=== PATIENT | male | born 1970 | race African-American/Black ===

== ENCOUNTER 2019-09-22 15:52 | Emergency (ER) | payer OTHER ==
[~2019-09-22] VITALS: Ht 180.3 cm; Wt 83.8 kg
[2019-09-22 15:52] VITALS: BP 129/80
[2019-09-22] MEDS ORDERED: MOTRIN (16:01)
[2019-09-22 17:03] LABS: BASO % 0.7 % (0.0-1.0); EOS # 0.3 10^3/uL (0.0-0.5); EOS % 4.4 % (0.0-3.0); HEMATOCRIT 40.8 % (42.0-52.0); HEMOGLOBIN 13.7 g/dl (13.5-17.5); LYMPH % 32.1 % (24.0-44.0); MEAN CORPUSCULAR HEMOGLOBIN 31.6 pg (27.0-33.0); MEAN CORPUSCULAR HGB CONC 33.6 g/dl (32.0-36.5); MEAN CORPUSCULAR VOLUME 94.2 fl (80.0-96.0); MONO # 0.4 10^3/uL (0.0-0.8); MONO % 6.8 % (0.0-5.0); NEUTROPHILS # 3.4 10^3/uL (1.5-8.5); NEUTROPHILS % 55.8 % (36.0-66.0); PLATELET COUNT, AUTOMATED 205 10^3/uL (150-450); RED BLOOD COUNT 4.33 10^6/uL (4.30-6.10); WHITE BLOOD COUNT 6.1 10^3/uL (4.0-10.0)
[2019-09-22 17:36] LABS: BLOOD UREA NITROGEN 12 MG/DL (7-18); CALCIUM LEVEL 8.6 MG/DL (8.5-10.1); CARBON DIOXIDE LEVEL 27 MEQ/L (21-32); CHLORIDE LEVEL 105 MEQ/L (98-107); CREATININE FOR GFR 1.01 MG/DL (0.70-1.30); GLOMERULAR FILTRATION RATE > 60.0 (>60); GLUCOSE, FASTING 136 MG/DL (70-100); POTASSIUM SERUM 3.8 MEQ/L (3.5-5.1); SODIUM LEVEL 136 MEQ/L (136-145)
[2019-09-22 17:45] LABS: INFLUENZA A AMPLIFICATION NEGATIVE (NEGATIVE); INFLUENZA B AMPLIFICATION NEGATIVE (NEGATIVE)
[2019-09-22] MEDS ORDERED: NS 1,000 ML IV ONE (17:45)
[2019-09-22] MEDS ORDERED: ONDANSETRON 4MG/2ML VIAL IV ONE (17:45)
[2019-09-22] MEDS ORDERED: MORPHINE 4 MG/ML 1ML VIAL/SYRINGE (J2270) IV ONE ×2 (17:45→20:45)
[2019-09-22] MEDS ORDERED: IPRATROPIUM 0.5MG/ALBUTEROL 2.5MG INH SOL UD 3ML (DUONEB)(J7620) NEB ONE ×2 (17:45→23:15)
[2019-09-22] MEDS ORDERED: ISOVUE-370 76% 100ML VIAL As Ordered ONE (17:54)
[2019-09-22 17:58] LABS: CK-MB VALUE MASS 1.8 NG/ML (<3.6); CPK CREATINE PHOSPHOKINASE 230 U/L (39-308); MB/CK RELATIVE INDEX 0.78 (< OR =4); TROPONIN I < 0.02 NG/ML (< 0.10)
--- NOTE | 2019-09-22 18:24 | REPVR ---
PROCEDURE INFORMATION: Exam: CT Angiography Chest With Contrast Exam date and time: 09/22/2019 5:59 PM Age: 49 years old Clinical indication: Other: Hemoptysis; Additional info: Hemoptysis, chest pain TECHNIQUE: Imaging protocol: Computed tomographic angiography of the chest with intravenous contrast. 3D rendering: MIP and/or 3D reconstructed images were created by the technologist. Radiation optimization: All CT scans at this facility use at least one of these dose optimization techniques: automated exposure control; mA and/or kV adjustment per patient size (includes targeted exams where dose is matched to clinical indication); or iterative reconstruction. Contrast material: ISOVUE 370; Contrast volume: 75 ml; Contrast route: IV; COMPARISON: CR Chest, 2 view PA, Lat 09/22/2019 5:00 PM FINDINGS: Pulmonary arteries: There are no pulmonary emboli. Aorta: There is no aortic dissection or aneurysm. Lungs: Focal right apical mass and or tumefactive fibrosis measuring 2.4 x 2.1 x 3.1 cm. Close interval follow-up suggested and/or correlation with PET imaging may be indicated. Mixed ground-glass and solid opacity in the posterior aspect of the right upper lobe. Findings consistent with acute pneumonitis including viral etiologies (COVID 19 stage 2-3 not excluded in the appropriate clinical setting). Multiple small subpleural blebs demonstrated in the upper lung zones. Pleural space: Unremarkable. No pneumothorax. No pleural effusion. Heart: Unremarkable. No cardiomegaly. No pericardial effusion. Liver: Cyst left lobe of the liver adjacent to the falciform ligament measures 2.1 cm maximally. Lymph nodes: Right hilar lymphadenopathy. Adenopathy surrounds and narrows the apical segmental artery to the right upper lobe. Mediastinal lymphadenopathy measures up to 16 mm in the retrocaval pretracheal region, 13 mm in the AP window, 14 mm in the subcarinal region. Bones/joints: Unremarkable. No acute fracture. Soft tissues: Unremarkable. IMPRESSION: 1. Focal right apical mass and or tumefactive fibrosis measuring 2.4 x 2.1 x 3.1 cm. Close interval follow-up suggested and/or correlation with PET imaging may be indicated. 2. Mixed ground-glass and solid opacity in the posterior aspect of the right upper lobe. Findings consistent with acute pneumonitis including viral etiologies (COVID 19 stage 2-3 not excluded in the appropriate clinical setting). 3. There is no aortic dissection or aneurysm. 4. Right hilar lymphadenopathy. Adenopathy surrounds and narrows the apical segmental artery to the right upper lobe. 5. There are no pulmonary emboli. Electronically signed by: Stu Munson On 09/22/2019 18:24:14 PM
--- NOTE | 2019-09-22 18:44 | REP ---
CHEST, TWO VIEWS: Two views of the chest are performed. There appears to be peripheral right upper lobe infiltrate. There is a very small right effusion. Apical soft tissue density on the right appears to demonstrate central air lucency. possibly a cavitating lesion. Diameter is about 4 cm. Prominent right paratracheal soft tissues is seen and I suspect adenopathy. The heart is normal in size. Left lung is clear. IMPRESSION: There appears to be right upper lobe infiltrate. There also appears to be right apical lesion approximately 4 cm in diameter, possibly cavitating. I suspect right paratracheal adenopathy. There appears to be a very small right pleural effusion. Electronically Signed by Aureliano Mccormick MD 09/23/2019 05:04 P
--- NOTE | 2019-09-22 21:24 | ECGEPIP ---
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
[2019-09-22] MEDS ORDERED: LIDOCAINE 4% CREAM 5GM (LMX4) TOP ONE (22:30)
[2019-09-22] MEDS ORDERED: NORCO 5/325MG TABLET (BULK FOR ED) PO ONE ×2 (22:30)
[2019-09-22] MEDS ORDERED: ALBUTEROL 90 MCG/ACT 8GM HFA INHALER INH ONE (22:30)
[2019-09-22] MEDS ORDERED: PROAAER10 INH (22:42)
[2019-09-22] MEDS ORDERED: NORCO, ANEXSIA 5/325MG TABLET (HYDROcodone/ACETAMINOPHEN) PO ONE (22:45)
--- NOTE | 2019-09-23 14:44 | ED PDOC ---
Post-Departure Follow-Up dr hays faxed formal report of cta chest for fu Wilton Cobb MD Sep 23, 2019 14:44
--- NOTE | 2019-09-27 13:19 | ED PDOC ---
Post-Departure Follow-Up dr hays faxed formal report of cxr for fu Wilton Cobb MD Sep 27, 2019 13:19
[2019-11-04] MEDS ORDERED: PROC10TA4 PO (15:30)
[2019-11-04] MEDS ORDERED: ONDA8TAB10 PO (15:30)
[2019-11-10] MEDS ORDERED: MULTCAP PO (10:43)
[2019-11-10] MEDS ORDERED: MELATONIN PO (13:52)
[2019-11-10] MEDS ORDERED: CANNABIDIOL PO (13:52)
== END 2019-09-23 00:59 | disposition home or self-care (01) ==
LOC: M ED 15:52
DX: J18.9 Pneumonia, unspecified organism (principal); R91.8 Other nonspecific abnormal finding of lung field; R00.1 Bradycardia, unspecified; R35.8 Other polyuria; F17.200 Nicotine dependence, unspecified, uncomplicated
CPT/HCPCS: 71046; 71275; 80048; 82550; 82553; 85025; 87486; 87502; 87581; 87633; 87798; 93005; 94640; 96361; 96374; 96375; 96376; 99284; J2270; J2405; Q9967

== ENCOUNTER → 2019-09-28 | Outpatient (CLI) | payer OTHER ==
[~2019-09-28] MED LIST: MOTRIN; PROAAER10 INH
[2019-09-28 14:39] LABS: CHOLESTEROL RISK RATIO 7.521 (<5)
== END ==
LOC: M PLALAB 10:52
PROVIDERS: ATTEND Internal Medicine Pulmonary Disease
DX: Z00.00 Encounter for general adult medical examination without abnormal findings (principal); R91.1 Solitary pulmonary nodule

== ENCOUNTER → 2019-09-30 | Outpatient (REF) | payer OTHER ==
[~2019-09-30] MED LIST changes: +CANNABIDIOL PO; +MELATONIN PO; +MULTCAP PO; +ONDA8TAB10 PO; +ONDA8TAB8 PO; +PROC10TA4 PO
== END ==
LOC: M LAB REF 16:31
PROVIDERS: ATTEND Internal Medicine Pulmonary Disease
DX: R04.2 Hemoptysis (principal)

== ENCOUNTER → 2019-10-04 | Outpatient (CLI) | payer OTHER ==
[~2019-10-04] MED LIST changes: -CANNABIDIOL PO; -MELATONIN PO; -MULTCAP PO; -ONDA8TAB10 PO; -ONDA8TAB8 PO; -PROC10TA4 PO
--- NOTE | 2019-10-04 15:09 | REP ---
PET/CT: HISTORY: Solitary pulmonary nodule. Abnormal CT study of the chest. COMPARISONS: Comparison chest CT study is from September 22, 2019. TECHNIQUE: 45 minutes following the intravenous injection of a 8.08 mCi dose of F-18 FDG, three-dimensional PET scintigraphy is acquired from the skull base to the proximal thighs. Triplanar noncontrast CT scanning is acquired through the same anatomic range for attenuation correction, and image registration with scan parameters optimized to minimize radiation exposure to the patient. PET scintigraphy and CT datasets were fused and displayed on a workstation with multiplanar and projection display capability. PET/CT FINDINGS: There is bilateral symmetric mildly increased salivary gland uptake affecting both parotid glands and both submandibular glands with maximum standard uptake value ranging from 4.5-7.0. Question mild sialoadenitis versus normal variant. No salivary gland mass lesion is appreciated. There is hypermetabolic lymphadenopathy in the right subclavicular region at the base of the neck in a 2.3 cm lymph node. Maximum standard uptake value here is 10.8. There is also right subclavian charlene uptake in a subcentimeter lymph node, maximum SUV 12.16. The right apical lung mass seen on CT study of the chest is hypermetabolic with maximum standard uptake value 22.86. There is right superior mediastinal, right pretracheal, and precarinal adenopathy with maximum standard uptake value ranging up to 14.9. Right hilar hypermetabolic adenopathy is seen, maximum SUV value 16.81. Right subcarinal hypermetabolic adenopathy is seen, 7.50. There is mildly hypermetabolic uptake in the parenchymal infiltrate in the right upper lobe, maximum SUV value 2.88. The infiltrate is more pronounced than on the comparison CT study. In the abdomen and pelvis, there is normal distribution of tracer. No abnormal adrenal uptake is seen. No abnormal hypermetabolic uptake is seen in the abdomen and pelvis. No abnormal bony focus is seen. IMPRESSION: Findings consistent with locally advanced bronchogenic malignancy in the right lung apex with mediastinal and right hilar lymphadenopathy and right supraclavicular and subclavicular hypermetabolic adenopathy. There is mildly increased uptake in a right upper lobe infiltrate which could be a postobstructive or neoplastic. Electronically Signed by Dre Loja MD 10/04/2019 04:29 P
== END ==
LOC: M PLARAD 08:29
PROVIDERS: ATTEND Internal Medicine Pulmonary Disease
DX: R91.1 Solitary pulmonary nodule (principal)
CPT/HCPCS: 78815; A9552

== ENCOUNTER → 2019-10-11 | Outpatient (REF) | payer OTHER ==
[~2019-10-11] MED LIST changes: +CANNABIDIOL PO; +MELATONIN PO; +MULTCAP PO; +ONDA8TAB10 PO; +ONDA8TAB8 PO; +PROC10TA4 PO
[2019-10-11 17:28] LABS: PLATELET COUNT, AUTOMATED 310 10^3/uL (150-450)
[2019-10-11 17:38] LABS: INR 0.97; PROTHROMBIN TIME 12.6 SECONDS (11.8-14.0)
[2019-10-11 17:39] LABS: PARTIAL THROMBOPLASTIN TIME 36.1 SECONDS (25.0-38.4)
== END ==
LOC: M LAB REF 16:53
PROVIDERS: ATTEND Internal Medicine Pulmonary Disease
DX: R91.8 Other nonspecific abnormal finding of lung field (principal)

== ENCOUNTER → 2019-11-07 | Outpatient (CLI) | payer OTHER ==
[~2019-11-07] MED LIST changes: -CANNABIDIOL PO; -MELATONIN PO; -MULTCAP PO; -ONDA8TAB8 PO; +PROHANCE 279.3MG/ML 15ML VIAL (A9576) As Ordered ONE; +PROHANCE 279.3MG/ML 5ML VIAL (A9576) As Ordered ONE
--- NOTE | 2019-11-07 12:00 | REP ---
MRI THORACIC SPINE WITH AND WITHOUT CONTRAST: TECHNIQUE: Multiple sequences obtained in the sagittal and axial planes prior to and following the intravenous administration of 16 mm ProHance. Thoracic vertebral bodies are normal in height and well aligned with normal thoracic kyphosis. No compress fracture is seen. There is no evidence of metastatic lesion. There is scattered loss of water signal and disc degeneration at virtually all levels. Small disc bulge is seen centrally at the T1-2 disc space. There is no abnormal cord signal or cord enhancement. There is no cord compression. Right paraspinal soft tissue mass at the apex of the right lung is noted. This appears to encase the exiting right T1 and T2 nerve roots just lateral to the neural foramen at these levels. Incidental note is made of previously identified right hilar lymphadenopathy. There is also an enlarged lymph node in the inferior right neck soft tissues measuring 2.2 x 1.3 cm. IMPRESSION: No evidence of thoracic vertebral body metastatic lesion. Small disc bulge T1-2 disc level. No cord lesion or cord compression. Enhancing mass in the apex of the right lung in a paraspinal location appears to encase the exiting T1 and T2 nerve roots just lateral to the neural foramen at these levels. Electronically Signed by Aureliano Mccormick MD 11/07/2019 12:12 P
--- NOTE | 2019-11-07 12:04 | REP ---
MRI BRAIN WITH AND WITHOUT CONTRAST: TECHNIQUE: Multiple sequences obtained in the sagittal and axial planes prior to and following the administration of 16 mL ProHance. Ventricles are normal in size and position. There is no midline shift or mass effect. Mccormick-white differentiation is well maintained. There is no abnormal signal of the brain, brain stem or cerebellum. 7th and 8th cranial nerve complexes are unremarkable. No enhancing metastatic lesion is seen. There is no extra-axial fluid collection. Globes are intact. There is no abnormal signal in the paranasal sinuses or mastoid air cells. IMPRESSION: No evidence of intracranial metastatic disease. Electronically Signed by Aureliano Mccormick MD 11/07/2019 12:12 P
== END ==
LOC: M RAD 08:29
PROVIDERS: ATTEND Internal Medicine Medical Oncology
DX: C34.90 Malignant neoplasm of unspecified part of unspecified bronchus or lung (principal)
CPT/HCPCS: 70553; 72157; A9576

== ENCOUNTER → 2019-11-10 | Outpatient (CLI) | payer OTHER ==
[~2019-11-10] MED LIST changes: +ACETAMINOPHEN 325 MG TAB As Ordered ONE; +CANNABIDIOL PO; +LIDOCAINE 1% MDV 20ML VIAL As Ordered ONE; +MELATONIN PO; +MIDAZOLAM INJ 2MG/2ML VIAL (J2250 PER 1MG) As Ordered ONE; +MULTCAP PO; -PROHANCE 279.3MG/ML 15ML VIAL (A9576) As Ordered ONE; -PROHANCE 279.3MG/ML 5ML VIAL (A9576) As Ordered ONE; +ceFAZolin 1GM VIAL (J0690 PER 500MG) As Ordered ONE; +diphenhydrAMINE 50MG/ML VIAL (J1200) As Ordered ONE; +fentaNYL 100 MCG/2 ML INJECTION (J3010) As Ordered ONE
--- NOTE | 2019-11-10 13:42 | RADONC ---
RADIATION ONCOLOGY CONSULTATION NOTE DATE OF CONSULTATION: 11/10/2019 This is a telemedicine visit. The patient was informed of the risks including security breech, technological failure, inability to perform a comprehensive physical exam which could delay or prevent an accurate diagnosis, and potential complications from treatment decisions rendered over a telemedicine platform. The patient understands and consented to the use of telehealth services. Phone only. CHART NUMBER: [id number]. DIAGNOSIS: Right upper lobe lung cancer. ECOG PERFORMANCE STATUS: Subjectively 0. STAGE: IIIB, T2a, N3, M0. CONSULTATION NOTE: Mr. 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 HISTORY OF PRESENT ILLNESS: The patient was in his usual state of health but reported developing some hemoptysis in earlier July or so. By September, he had developed increasing hemoptysis and some upper right-sided chest and back pain. The patient presented on 09/22/2019 with these complaints, and a CT angio of the chest was undertaken which revealed a focal right apical mass measuring 2.4 cm x 2.1 cm x 3.1 cm. There was also a mixture ground-glass and solid opacity in the posterior aspect of the right upper lobe. There was right hilar adenopathy noted. The patient was seen by Dr. Jorge, and a PET scan was done on 10/04/2019. This revealed hypermetabolic uptake in the right subclavicular region at the base of the neck and a 2.3 cm lymph node. There was an SUV value of 10.8 in that lymph node. There was also right subclavian charlene uptake in a subcentimeter-size lymph node with an SUV value of 12.16. The right apical lung mass seen on CT scan of the chest was hypermetabolic with an SUV value of 22.86. There was right superior mediastinal, right pretracheal, and precarinal lymphadenopathy present. The maximum SUV value is 14.9. There was right hilar hypermetabolic uptake, as well, with an SUV value of 16.8. The right subcarinal hypermetabolic adenopathy had an SUV value of 7.5. The infiltrate which was thought to be nonmalignant had an SUV value of 2.8. On 10/20/2019, the patient underwent right upper lung biopsy, and pathology revealed a moderately differentiated invasive squamous cell carcinoma. The tumor was CK5/6 positive and TTF-1 negative. Pulmonary function tests were done on 10/13/2019, and an FEV-1 was found to be 2.81 or 79% of predicted. The diffusion capacity was 26.51 or 84% of predicted. The patient has been seen by medical oncology and is now presenting to us for discussion of external beam radiation therapy as a combined modality approach. PAST MEDICAL HISTORY: The patient's past medical history is largely noncontributory. He had a herniorrhaphy in 1977 at the age of 6. He has been in otherwise good health. SOCIAL HISTORY: The patient has a long history of smoking for about 28 years. He quit less than a year ago. He drinks alcohol occasionally. FAMILY HISTORY: The patient's family history is positive for a father with colon cancer and a brother with colon cancer. There is no family history of lung cancer. REVIEW OF SYSTEMS: The patient's review of systems is positive for his right arm pain and upper back pain, as well as hemoptysis, but is otherwise noncontributory. He denies nausea, vomiting, fevers, chills, night sweats, diplopia, headaches, anxiety or depression, anorexia, weight loss, visual disturbances, chest pain, urinary or bowel difficulties, bone pain, or neurological problems. PHYSICAL EXAMINATION: Physical examination was deferred at this time as per COVID-19 precautions. This was a telephone interview. ASSESSMENT: Clearly, the patient appears to be a candidate for external beam radiation therapy, and I have so informed him. I have discussed with the patient in detail the potential benefits, as well as possible acute and chronic sequelae of external beam radiation therapy. We have discussed logistics of treatment planning, simulation, and subsequent fractionated daily radiation treatments. I am scheduling the patient for the next available simulation slot, and radiation treatments will begin subsequently. We will coordinate his care with Dr. Morales, his medical oncologist, for concomitant therapy. Thank you for allowing us to participate in the care of this very pleasant gentleman. If I can be of any further assistance or provide you with any information, please free to contact me at any time. As always, warm regards. Tyler Maxwell cc: MD Gideon Ortega MD
--- NOTE | 2019-11-10 13:47 | IRHP ---
[facility] IR Pre-Procedure H & P General Date of Service: Nov 10, 2019 Procedure: Same Day Surgery Interval History and Physical I have seen the patient and reviewed last H & P performed within 30 days. There is no significant interval change. History of Present Illness Chief Complaint The patient is a 49-year-old male admitted with a reason for visit of Lung Ca. PRE-PROCEDURE DIAGNOSIS: lung ca HEART: normal rate. LUNGS: normal breathing at rest. ASA Classification ASA Classification: III-Severe systemic dis. Mallampati Score: II NPO: Yes Problems with prior sedation: No Obstructive Sleep Apnea: No Plan moderate sedation Allergies Coded Allergies: No Known Allergies (Unverified , 09/22/19) Home Medications Scheduled Multivitamin (Multivitamins), 1 CAP PO DAILY, (Reported) Scheduled PRN Albuterol Sulfate (Proair Hfa), 2 PUFF INH Q4-6HP PRN for wheezing Ondansetron HCl (Ondansetron HCl), 8 MG PO Q6H PRN for NAUSEA OR VOMITING Prochlorperazine Maleate (Prochlorperazine Maleate), 10 MG PO Q8HP PRN for NAUSEA OR VOMITING Discontinued Medications [motrin 800], (Reported) Discontinued Reason: Pt states not taking VS, I&O, 24H, Fishbone Vital Signs/I&O Vital Signs Date Time Temp Pulse Resp B/P (MAP) Pulse Ox O2 Delivery O2 Flow Rate FiO2 11/10/19 13:30 98.2 75 16 99 Room Air EDUARDO WASSERMAN MD Nov 10, 2019 13:47
--- NOTE | 2019-11-10 14:44 | REP ---
IR Ultrasound and fluoroscopy-guided port placement. IR Ultrasound of the neck. IR Moderate sedation. Clinical information: Lung cancer. Physician: Dr. Cardenas. Procedure: The patient was advised of the benefits, risks, and alternatives of the procedure and informed consent was obtained. A time-out was performed with verification of the patient's name, MRN, site of procedure and type of procedure to be performed. The patient was positioned in the supine position on the angiographic table. The site was prepped and draped in the usual sterile fashion. Moderate sedation was performed by the physician including the presence of an independent trained observer who assisted and monitored the patient's level of consciousness and physiologic status. Following the administration of Fentanyl and Versed, the physician spent 45 minutes of continuous face to face time with the patient. Ultrasound of the neck reveals a patent and compressible right internal jugular vein. A family preservation officer radiograph reveals right hilar fullness. The neck and anterior chest wall were anesthetized with lidocaine. The right internal jugular vein was accessed using a microintroducer needle under ultrasound guidance, via a lateral approach. An 018 wire was advanced into the superior vena cava, the needle was removed and a microsheath was placed. An Amplatz wire was then passed into the inferior vena cava. An incision at the internal jugular vein access site and anterior chest wall were made using a scalpel. An incision was made at the anterior chest wall. A small pocket was created using a combination of blunt and sharp dissection. A tunneling device was then used to pass the catheter from the pocket to the neck puncture site. An 8-[employer] smart power port was then positioned in the pocket. The catheter was then measured and cut. The introducer sheath was exchanged for a peel-away sheath. The catheter was passed through the peel-away sheath into the internal jugular vein and the peel-away sheath was removed. The port tip was positioned at the cavo atrial junction. The port was then accessed with a Espino needle. The port flushes and aspirates well. The puncture site in the neck was closed. The chest wall incision was then closed with 2-0 Vicryl and 4-0 Monocryl. Glue and Steri-Strips were applied. A sterile dressing was then applied. The patient tolerated the procedure well and was returned to the PRU in stable condition. Estimated blood loss: <5 ml. Complications: None. Conclusion: 1. Successful placement of an 8-[employer] smart power port via the right internal jugular vein. The port is ready for immediate use. 2. Patient to follow up in IR clinic in 2 weeks. Thank you for this referral. Electronically Signed by Sandra Cardenas MD 11/10/2019 02:43 P
[2019-11-10] MEDS: ACETAMINOPHEN 325 MG TAB PO ONE (15:25)
[2019-11-10 16:45] VITALS: BP 131/98
== END ==
LOC: M IRPRO 12:43
PROVIDERS: ATTEND Radiology Diagnostic Radiology
DX: C34.11 Malignant neoplasm of upper lobe, right bronchus or lung (principal); Z80.0 Family history of malignant neoplasm of digestive organs; Z72.0 Tobacco use

== ENCOUNTER → 2019-11-10 | Outpatient (CLI) | payer OTHER ==
[~2019-11-10] MED LIST changes: -ACETAMINOPHEN 325 MG TAB As Ordered ONE; -LIDOCAINE 1% MDV 20ML VIAL As Ordered ONE; -MIDAZOLAM INJ 2MG/2ML VIAL (J2250 PER 1MG) As Ordered ONE; -ceFAZolin 1GM VIAL (J0690 PER 500MG) As Ordered ONE; -diphenhydrAMINE 50MG/ML VIAL (J1200) As Ordered ONE; -fentaNYL 100 MCG/2 ML INJECTION (J3010) As Ordered ONE
== END ==
LOC: M ONCR 10:01
PROVIDERS: ATTEND Radiology Radiation Oncology
DX: C34.11 Malignant neoplasm of upper lobe, right bronchus or lung (principal)

== ENCOUNTER 2019-11-14 10:31 | Outpatient (RCR) | payer OTHER ==
[2019-11-14] MEDS ORDERED: ONDA8TAB8 PO (11:24)
--- NOTE | 2019-11-15 00:10 | RADONC ---
RADIATION ONCOLOGY SIMULATION NOTE DATE: 11/14/2019 CHART NUMBER: [id number] Mr. Peters was taken to the CT scan for CT simulation of his lung field. CT was accomplished without difficulty or discomfort. Radiation treatment planning is underway and radiation treatments will begin subsequently. An immobilization device was created and will be used throughout the course of treatment. It was created without difficulty or discomfort. I was physically present throughout the course of CT simulation.
== END 2019-11-17 ==
LOC: M ONCR 10:31
PROVIDERS: ATTEND Radiology Radiation Oncology
DX: C34.11 Malignant neoplasm of upper lobe, right bronchus or lung (principal)

== ENCOUNTER → 2019-11-29 | Outpatient (POV) | payer OTHER ==
[~2019-11-29] MED LIST changes: +AMIL5TAB4 PO; +GABA-1171 PO; +ONDA8TAB8 PO; +OXYC-517 PO
--- NOTE | 2019-11-30 10:06 | IRPN ---
[facility] IR Progress Note IR Progress Note DATE: November 29, 2019 FOLLOW-UP: Status post port placement, patient doing well. Denies pain, fevers or chills. Port used without issues. ON EXAMINATION: Pictures sent by patient were reviewed. Port site appears to be healing well. No discoloration or discharge. IMPRESSION: Doing well status post port placement. No further follow up scheduled unless initiated by patient and or referring provider. Thank you for this referral Allergies Coded Allergies: No Known Allergies (Unverified , 09/22/19) EDUARDO WASSERMAN MD November 30, 2019 10:06
== END ==
LOC: M IRPOV 09:51
PROVIDERS: ATTEND Radiology Diagnostic Radiology
DX: Z45.2 Encounter for adjustment and management of vascular access device (principal)

== ENCOUNTER 2019-12-16 07:57 | Outpatient (RCR) | payer OTHER ==
--- NOTE | 2019-11-30 06:36 | RADONC ---
RADIATION ONCOLOGY PROGRESS NOTE DATE: 11/28/2019 CHART #: [id number] Mr. Robledo is presently at a dose of 600 cGy to his right lung and is tolerating treatments quite well at this point with no complaints related to his radiation therapy. He is having no chest pain or increased difficulty breathing. REVIEW OF SYSTEMS: The patient's review of systems is noncontributory. Denies nausea, vomiting, fevers, chills, night sweats, diplopia, headaches, anxiety or depression, anorexia, weight loss, visual disturbances, chest pain, urinary or bowel difficulties, bone pain, or neurological problems. PHYSICAL EXAMINATION: The patient's skin is in good condition with no evidence of radiation change present. There is no moist or dry desquamation. The remainder of his physical exam remains unchanged. Mr. Peters is tolerating treatments quite well and radiation will continue as scheduled.
--- NOTE | 2019-12-07 07:09 | RADONC ---
RADIATION ONCOLOGY PROGRESS NOTE: DATE: 12/05/2019 CHART NUMBER: [id number] Mr. Peters is presently at a dose of 1600 cGy to his right lung and is tolerating treatments quite well at this point with no complaints related to his radiation therapy. He is having no significant difficulty breathing or swallowing. REVIEW OF SYSTEMS: The patient's review of systems is positive for some mild nausea since chemotherapy but is otherwise noncontributory. Denies vomiting, fevers, chills, night sweats, diplopia, headaches, anxiety or depression, anorexia, weight loss, visual disturbances, chest pain, urinary or bowel difficulties, bone pain, or neurological problems. PHYSICAL EXAMINATION: The patient's skin is in good condition with no evidence of radiation change present. There is no moist or dry desquamation. The remainder of his physical exam remains unchanged. Mr. Peters is tolerating treatments quite well, and radiation will continue as scheduled.
[~2019-12-16 07:57] MED LIST changes: +MAGICMW SSP
--- NOTE | 2019-12-16 13:53 | RADONC ---
RADIATION ONCOLOGY PROGRESS NOTE DATE: 12/13/2019 CHART NUMBER: [id number] PROGRESS NOTE: Mr. Peters is presently at a dose of 2600 cGy to his right lung and is tolerating treatment quite well at this point with no complaints related to his radiation therapy. He is having no increased difficulty breathing. He is having some soreness of the throat but this has not stopped him from eating. REVIEW OF SYSTEMS: The patient's review of systems is positive for some mild esophagitis, but is otherwise noncontributory. Denies nausea, vomiting, fevers, chills, night sweats, diplopia, headaches, anxiety or depression, anorexia, weight loss, visual disturbances, chest pain, urinary or bowel difficulties, bone pain, or neurological problems. PHYSICAL EXAMINATION: The patient's skin is in good condition with no evidence of moist or dry desquamation. The remainder of his physical exam remains unchanged. Mr. Peters is tolerating treatment quite well and radiation will continue as scheduled.
[2019-12-28] MEDS ORDERED: CHLOR25TA PO (15:36)
[2020-01-02] MEDS ORDERED: SILV40CR EXT (08:33)
== END 2019-12-18 ==
LOC: M ONCR 07:57
PROVIDERS: ATTEND Radiology Radiation Oncology
DX: C34.11 Malignant neoplasm of upper lobe, right bronchus or lung (principal)

== ENCOUNTER 2020-01-05 07:56 | Outpatient (RCR) | payer OTHER ==
--- NOTE | 2019-12-24 15:14 | RADONC ---
RADIATION ONCOLOGY PROGRESS NOTE: DATE: 12/19/2019 CHART NUMBER: [id number] Mr. Peters is presently at a dose of 3400 cGy to his right lung and is tolerating treatments quite well at this point with no complaints related to his radiation therapy. His triple mix has alleviated his esophagitis quite well. REVIEW OF SYSTEMS: The patient's review of systems is noncontributory. He denies nausea, vomiting, fevers, chills, night sweats, diplopia, headaches, anxiety or depression, anorexia, weight loss, visual disturbances, chest pain, urinary or bowel difficulties, bone pain, or neurological problems. PHYSICAL EXAMINATION: The patient's skin is in good condition with no evidence of moist or dry desquamation. The remainder of his physical exam remains unchanged. Mr. Peters is tolerating treatments quite well and radiation will continue as scheduled.
--- NOTE | 2019-12-30 10:50 | RADONC ---
RADIATION ONCOLOGY PROGRESS NOTE DATE: 12/26/2019 CHART #: [id number] Mr. Peters is presently at a dose of 4400 cGy to his right lung and is tolerating treatments quite well at this point with no significant difficulties related to his radiation therapy other than for some esophagitis. REVIEW OF SYSTEMS: The patient's review of systems is positive for some discomfort upon swallowing, but is otherwise noncontributory. Denies nausea, vomiting, fevers, chills, night sweats, diplopia, headaches, anxiety or depression, anorexia, weight loss, visual disturbances, chest pain, urinary or bowel difficulties, bone pain, or neurological problems. PHYSICAL EXAMINATION: The patient's skin is in good condition with no evidence of moist or dry desquamation. The remainder of the physical exam remains unchanged. Mr. Peters is tolerating treatments quite well and radiation will continue as scheduled.
--- NOTE | 2020-01-04 09:29 | RADONC ---
RADIATION ONCOLOGY PROGRESS NOTE DATE: 01/02/2020 CHART #: [id number] Mr. Peters is presently at a dose of 5400 cGy to his right lung and is tolerating treatments quite well at this point with no significant complaints related to his radiation therapy. He is actually doing quite well. He does have some tenderness of the skin both on the anterior and posterior areas. REVIEW OF SYSTEMS: The patient's review of systems is positive for some skin tenderness but is otherwise noncontributory. Denies nausea, vomiting, fevers, chills, night sweats, diplopia, headaches, anxiety or depression, anorexia, weight loss, visual disturbances, chest pain, urinary or bowel difficulties, bone pain, or neurological problems. PHYSICAL EXAMINATION: The patient's skin shows some dry desquamation present over the anterior surface and the posterior also shows some desquamation and tanning present. The remainder of his physical exam remains unchanged except for a 2 pound weight loss. ASSESSMENT: The patient is clinically doing well at this time and radiation will continue as scheduled.
[~2020-01-05 07:56] MED LIST changes: +CHLOR25TA PO; +SILV40CR EXT
--- NOTE | 2020-01-08 14:49 | RADONC ---
RADIATION ONCOLOGY TREATMENT SUMMARY DATE: 01/05/2020 CHART #: [id number] DIAGNOSIS: Right upper lobe lung cancer. STAGE: III B, [id number]. ECOG PERFORMANCE STATUS: 0. TREATMENT SUMMARY: Mr. 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 We treated the patient to his primary site for a total dose of 6000 cGy delivered in 30 fractions of 200 cGy each over 41 elapsed days from 11/24/2019 through 01/05/2020. The patient's primary site was treated on a linear accelerator utilizing 3-D conformal technique with a 15 MV photon beam. Mr. Peters tolerated his treatments quite well and was able complete therapy as prescribed without interruption. I have scheduled the patient to see me again in 1 month for further followup. He will also continue to be followed by his other physicians as well. cc: MD Gideon Ortega MD
== END 2020-01-17 ==
LOC: M ONCR 07:56
PROVIDERS: ATTEND Radiology Radiation Oncology
DX: C34.11 Malignant neoplasm of upper lobe, right bronchus or lung (principal)

== ENCOUNTER → 2020-02-08 | Outpatient (CLI) | payer OTHER | LOC: M ONCR 08:58 | PROVIDERS: ATTEND Radiology Radiation Oncology | DX: C34.11 Malignant neoplasm of upper lobe, right bronchus or lung (principal) ==

== ENCOUNTER → 2020-08-31 | Outpatient (CLI) | payer OTHER ==
[2020-08-31 15:23] LABS: BASO % 1.5 % (0.0-1.0); EOS # 0.1 10^3/uL (0.0-0.5); EOS % 2.7 % (0.0-3.0); HEMATOCRIT 37.8 % (42.0-52.0); HEMOGLOBIN 12.4 g/dl (13.5-17.5); LYMPH # 1.1 10^3/uL (1.5-5.0); LYMPH % 41.4 % (24.0-44.0); MEAN CORPUSCULAR HEMOGLOBIN 29.5 pg (27.0-33.0); MEAN CORPUSCULAR HGB CONC 32.8 g/dl (32.0-36.5); MEAN CORPUSCULAR VOLUME 89.8 fl (80.0-96.0); MONO # 0.3 10^3/uL (0.0-0.8); NEUTROPHILS # 1.1 10^3/uL (1.5-8.5); NEUTROPHILS % 41.5 % (36.0-66.0); PLATELET COUNT, AUTOMATED 211 10^3/uL (150-450); RED BLOOD COUNT 4.21 10^6/uL (4.30-6.10); WHITE BLOOD COUNT 2.6 10^3/uL (4.0-10.0)
== END ==
LOC: M LAB 14:50
PROVIDERS: ATTEND Physician Assistant
DX: C34.91 Malignant neoplasm of unspecified part of right bronchus or lung (principal)

== ENCOUNTER → 2020-10-02 | Outpatient (REF) | payer OTHER ==
[2020-10-02 17:13] LABS: HEMATOCRIT 37.5 % (42.0-52.0); HEMOGLOBIN 12.3 g/dl (13.5-17.5); MEAN CORPUSCULAR HEMOGLOBIN 30.6 pg (27.0-33.0); MEAN CORPUSCULAR HGB CONC 32.8 g/dl (32.0-36.5); MEAN CORPUSCULAR VOLUME 93.3 fl (80.0-96.0); PLATELET COUNT, AUTOMATED 154 10^3/uL (150-450); RED BLOOD COUNT 4.02 10^6/uL (4.30-6.10); WHITE BLOOD COUNT 6.5 10^3/uL (4.0-10.0)
[2020-10-02 17:29] LABS: ALBUMIN 3.7 GM/DL (3.2-5.2); ALT/SGPT 26 U/L (12-78); BILIRUBIN,TOTAL 0.2 MG/DL (0.2-1.0); BLOOD UREA NITROGEN 10 MG/DL (7-18); CALCIUM LEVEL 8.9 MG/DL (8.5-10.1); CARBON DIOXIDE LEVEL 29 MEQ/L (21-32); CHLORIDE LEVEL 104 MEQ/L (98-107); CREATININE FOR GFR 0.89 MG/DL (0.70-1.30); GLOMERULAR FILTRATION RATE > 60.0 (>60); GLUCOSE, FASTING 129 MG/DL (70-100); SODIUM LEVEL 139 MEQ/L (136-145); TOTAL PROTEIN 7.2 GM/DL (6.4-8.2)
[2020-10-02 17:55] LABS: ATYPICAL LYMPH 4 % (0-5); LYMPHOCYTES 9 % (16-44); METAMYELOCYTES 1 % (0-0); MONOCYTES 14 % (0-5); NEUTROPHILS 70 % (28-66)
[2020-10-02 17:57] LABS: GIANT PLATELETS 1+
[2020-10-02 17:58] LABS: ANISOCYTOSIS 1+
[2020-10-02 17:59] LABS: PLATELET ESTIMATE NORMAL (NORMAL); POLYCHROMASIA 1+
== END ==
LOC: M LABDRWAD 16:22
PROVIDERS: ATTEND Physician Assistant
DX: C34.91 Malignant neoplasm of unspecified part of right bronchus or lung (principal)

== ENCOUNTER → 2020-10-30 | Outpatient (CLI) | payer OTHER ==
[2020-10-30 14:47] LABS: HEMATOCRIT 34.8 % (42.0-52.0); HEMOGLOBIN 11.6 g/dl (13.5-17.5); MEAN CORPUSCULAR HGB CONC 33.3 g/dl (32.0-36.5); MEAN CORPUSCULAR VOLUME 99.1 fl (80.0-96.0); PLATELET COUNT, AUTOMATED 149 10^3/uL (150-450); RED BLOOD COUNT 3.51 10^6/uL (4.30-6.10); WHITE BLOOD COUNT 7.8 10^3/uL (4.0-10.0)
[2020-10-30 15:26] LABS: BASOPHILS 1 % (0-1); LYMPHOCYTES 9 % (16-44); METAMYELOCYTES 2 % (0-0); MONOCYTES 4 % (0-5); MYELOCYTES 2 % (0-0); NEUTROPHILS 78 % (28-66)
[2020-10-30 15:30] LABS: ANISOCYTOSIS 4+
[2020-10-30 15:31] LABS: POIKILOCYTOSIS 1+
[2020-10-30 15:32] LABS: PLATELET ESTIMATE DECREASED (NORMAL); ROULEAUX 1+
[2020-10-30 15:45] LABS: ALBUMIN 3.7 GM/DL (3.2-5.2); ALT/SGPT 40 U/L (12-78); BILIRUBIN,TOTAL 0.3 MG/DL (0.2-1.0); BLOOD UREA NITROGEN 14 MG/DL (7-18); CALCIUM LEVEL 8.9 MG/DL (8.5-10.1); CARBON DIOXIDE LEVEL 30 MEQ/L (21-32); CHLORIDE LEVEL 101 MEQ/L (98-107); CREATININE FOR GFR 0.83 MG/DL (0.70-1.30); GLOMERULAR FILTRATION RATE > 60.0 (>60); GLUCOSE, FASTING 153 MG/DL (70-100); SODIUM LEVEL 138 MEQ/L (136-145)
== END ==
LOC: M LAB 14:01
PROVIDERS: ATTEND Physician Assistant
DX: C34.91 Malignant neoplasm of unspecified part of right bronchus or lung (principal)

== ENCOUNTER → 2020-11-06 | Outpatient (REF) | payer OTHER ==
[2020-11-06 17:41] LABS: BASO % 0.3 % (0.0-1.0); EOS % 1.4 % (0.0-3.0); HEMATOCRIT 32.8 % (42.0-52.0); HEMOGLOBIN 11.3 g/dl (13.5-17.5); LYMPH # 1.1 10^3/uL (1.5-5.0); LYMPH % 37.9 % (24.0-44.0); MEAN CORPUSCULAR HEMOGLOBIN 33.6 pg (27.0-33.0); MEAN CORPUSCULAR HGB CONC 34.5 g/dl (32.0-36.5); MEAN CORPUSCULAR VOLUME 97.6 fl (80.0-96.0); MONO # 0.4 10^3/uL (0.0-0.8); MONO % 12.4 % (2.0-8.0); NEUTROPHILS # 1.4 10^3/uL (1.5-8.5); NEUTROPHILS % 47.3 % (36.0-66.0); PLATELET COUNT, AUTOMATED 178 10^3/uL (150-450); RED BLOOD COUNT 3.36 10^6/uL (4.30-6.10); WHITE BLOOD COUNT 2.9 10^3/uL (4.0-10.0)
[2020-11-06 18:25] LABS: ALBUMIN 3.4 GM/DL (3.2-5.2); BILIRUBIN,TOTAL 0.4 MG/DL (0.2-1.0); BLOOD UREA NITROGEN 18 MG/DL (7-18); CALCIUM LEVEL 8.5 MG/DL (8.5-10.1); CARBON DIOXIDE LEVEL 34 MEQ/L (21-32); CHLORIDE LEVEL 100 MEQ/L (98-107); CREATININE FOR GFR 0.91 MG/DL (0.70-1.30); GLOMERULAR FILTRATION RATE > 60.0 (>60); GLUCOSE, FASTING 146 MG/DL (70-100); MAGNESIUM LEVEL 1.7 MG/DL (1.8-2.4); POTASSIUM SERUM 3.5 MEQ/L (3.5-5.1); SODIUM LEVEL 139 MEQ/L (136-145)
[2020-11-06 18:41] LABS: ALT/SGPT 34 IU/L (0-32)
== END ==
LOC: M LABDRWAD 16:41
PROVIDERS: ATTEND Physician Assistant
DX: C34.91 Malignant neoplasm of unspecified part of right bronchus or lung (principal)

== ENCOUNTER → 2020-11-12 | Outpatient (CLI) | payer OTHER ==
--- NOTE | 2020-11-13 15:11 | SLEEPHOME ---
DATE: 11/12/2020 ORDERED BY: KYLE MINOR MD Diagnostic home sleep testing was performed due to concern for the obstructive sleep apnea syndrome. For testing, a nocturnal T3 respiratory monitoring device was used. Continuous record was made of pulse, oxygen saturation, air flow, chest and abdominal strain, and body position. Eleven hours and 59 minutes of data were reviewed. There were 10 hours and 4 minutes marked as time in bed. During the interval marked time in bed, there were 908 respiratory events identified of 10 seconds in duration or greater for a respiratory event index of 90.1. The events were primarily obstructive, but 24 mixed and central apneas were seen. Baseline pulse rate was 94. Pulse rate ranged 27 to 192. Baseline saturation was 94%. Saturations fell to 63%. Testing was performed in both the supine and nonsupine positions. IMPRESSION: Abnormal home sleep testing with repetitive respiratory events and oxygen desaturations to 63% with a respiratory event index of 90.1 is consistent with the obstructive sleep apnea syndrome. RECOMMENDATION: The patient should be encouraged to undergo a formal sleep evaluation. cc: KALI ALFREDO MD
== END ==
LOC: M SLEEP HO 10:09
PROVIDERS: ATTEND Internal Medicine Pulmonary Disease
DX: G47.30 Sleep apnea, unspecified (principal)

== ENCOUNTER → 2020-11-13 | Outpatient (CLI) | payer OTHER ==
[2020-11-13 11:42] LABS: BASO % 1.6 % (0.0-1.0); EOS # 0.1 10^3/uL (0.0-0.5); EOS % 3.7 % (0.0-3.0); HEMATOCRIT 34.7 % (42.0-52.0); HEMOGLOBIN 11.4 g/dl (13.5-17.5); LYMPH # 0.8 10^3/uL (1.5-5.0); MEAN CORPUSCULAR HEMOGLOBIN 33.5 pg (27.0-33.0); MEAN CORPUSCULAR HGB CONC 32.9 g/dl (32.0-36.5); MEAN CORPUSCULAR VOLUME 102.1 fl (80.0-96.0); MONO # 0.2 10^3/uL (0.0-0.8); MONO % 12.6 % (2.0-8.0); PLATELET COUNT, AUTOMATED 212 10^3/uL (150-450); WHITE BLOOD COUNT 1.9 10^3/uL (4.0-10.0)
[2020-11-13 12:10] LABS: ALBUMIN 3.8 GM/DL (3.2-5.2); ALT/SGPT 36 U/L (12-78); BILIRUBIN,TOTAL 0.3 MG/DL (0.2-1.0); BLOOD UREA NITROGEN 11 MG/DL (7-18); CALCIUM LEVEL 9.4 MG/DL (8.5-10.1); CARBON DIOXIDE LEVEL 30 MEQ/L (21-32); CHLORIDE LEVEL 102 MEQ/L (98-107); GLOMERULAR FILTRATION RATE > 60.0 (>60); GLUCOSE, FASTING 85 MG/DL (70-100); MAGNESIUM LEVEL 1.9 MG/DL (1.8-2.4); POTASSIUM SERUM 4.8 MEQ/L (3.5-5.1); SODIUM LEVEL 137 MEQ/L (136-145); TOTAL PROTEIN 7.5 GM/DL (6.4-8.2)
[2020-11-13 12:12] LABS: NEUTROPHILS # 0.8 10^3/uL (1.5-8.5)
== END ==
LOC: M LAB 11:16
PROVIDERS: ATTEND Physician Assistant
DX: C34.90 Malignant neoplasm of unspecified part of unspecified bronchus or lung (principal)

== ENCOUNTER → 2020-11-27 | Outpatient (REF) | payer OTHER ==
[2020-11-27 16:56] LABS: BASO # 0.1 10^3/uL (0.0-0.2); EOS # 0.1 10^3/uL (0.0-0.5); EOS % 1.4 % (0.0-3.0); HEMOGLOBIN 10.9 g/dl (13.5-17.5); LYMPH # 1.1 10^3/uL (1.5-5.0); LYMPH % 22.6 % (24.0-44.0); MEAN CORPUSCULAR HEMOGLOBIN 34.5 pg (27.0-33.0); MEAN CORPUSCULAR HGB CONC 32.1 g/dl (32.0-36.5); MEAN CORPUSCULAR VOLUME 107.6 fl (80.0-96.0); MONO # 0.7 10^3/uL (0.0-0.8); NEUTROPHILS # 2.8 10^3/uL (1.5-8.5); NEUTROPHILS % 58.1 % (36.0-66.0); PLATELET COUNT, AUTOMATED 138 10^3/uL (150-450); RED BLOOD COUNT 3.16 10^6/uL (4.30-6.10); WHITE BLOOD COUNT 4.9 10^3/uL (4.0-10.0)
[2020-11-27 17:15] LABS: ALBUMIN 3.5 GM/DL (3.2-5.2); ALT/SGPT 28 U/L (12-78); BILIRUBIN,TOTAL 0.2 MG/DL (0.2-1.0); BLOOD UREA NITROGEN 13 MG/DL (7-18); CARBON DIOXIDE LEVEL 29 MEQ/L (21-32); CHLORIDE LEVEL 105 MEQ/L (98-107); CREATININE FOR GFR 0.94 MG/DL (0.70-1.30); GLOMERULAR FILTRATION RATE > 60.0 (>60); GLUCOSE, FASTING 118 MG/DL (70-100); POTASSIUM SERUM 3.9 MEQ/L (3.5-5.1); SODIUM LEVEL 139 MEQ/L (136-145); TOTAL PROTEIN 6.9 GM/DL (6.4-8.2)
== END ==
LOC: M LABDRWAD 15:56
PROVIDERS: ATTEND Physician Assistant
DX: C34.91 Malignant neoplasm of unspecified part of right bronchus or lung (principal)

== ENCOUNTER → 2020-12-02 | Outpatient (CLI) | payer OTHER ==
--- NOTE | 2020-12-03 15:53 | SLEEPCENT ---
NOCTURNAL POLYSOMNOGRAPHY CPAP TITRATION DATE: 12/02/2020 ORDERED BY: Gideon Jogre M.D. Nocturnal polysomnography was performed for the titration of pressure therapy in this patient with a clinical diagnosis of obstructive sleep apnea syndrome confirmed by home testing revealing a respiratory event index of 90. For testing a ResMed AirFit F20 full face mask of medium size was used, 4 cm of water pressure were applied to the circuit, and the lights were extinguished. 8 hours and 39 minutes of data were reviewed. There were 470 minutes of sleep identified. Sleep latency was mildly prolonged at 20 minutes. REM latency was normal at 92 minutes. Sleep architecture improved with optimal pressure therapy. There were four REM cycles noted. Overall sleep efficiency was 91.5%. The electrocardiogram showed a sinus rhythm with an average heart rate of 95 beats per minute. EEG showed normal waveforms for wake and sleep. Respiratory events were fully palliated with CPAP at a pressure of 15 with some minor limb activity and remaining measures of sleep physiology were normal. IMPRESSION: Obstructive sleep apnea syndrome (G47.33) RECOMMENDATION: Nightly use of pressure therapy 15 cm of water.
== END ==
LOC: M SLEEP 20:00
PROVIDERS: ATTEND Internal Medicine Pulmonary Disease
DX: G47.33 Obstructive sleep apnea (adult) (pediatric) (principal)

== ENCOUNTER 2022-05-17 19:25 | Inpatient (IN) | payer OTHER ==
[~2022-05-17] VITALS: Ht 180.3 cm; Wt 78.4 kg
[~2022-05-17 19:25] MED LIST changes: +ONDA-84 PO; -ONDA8TAB10 PO; -PROC10TA4 PO; +PROC10TA5 PO
[2022-05-17] MEDS ORDERED: NS 2,400 ML in IV 1 EA IV ONE (19:45)
[2022-05-17] MEDS ORDERED: ACETAMINOPHEN 325 MG TAB PO ONE (19:45)
[2022-05-17 20:03] LABS: BASO % 0.4 % (0.0-1.0); HEMATOCRIT 29.6 % (42.0-52.0); HEMOGLOBIN 8.8 g/dl (13.5-17.5); LYMPH # 1.2 10^3/uL (1.5-5.0); MEAN CORPUSCULAR HEMOGLOBIN 25.6 pg (27.0-33.0); MEAN CORPUSCULAR HGB CONC 29.7 g/dl (32.0-36.5); MONO # 0.7 10^3/uL (0.0-0.8); MONO % 13.8 % (2.0-8.0); NEUTROPHILS # 3.1 10^3/uL (1.5-8.5); NEUTROPHILS % 62.6 % (36.0-66.0); PLATELET COUNT, AUTOMATED 321 10^3/uL (150-450); RED BLOOD COUNT 3.44 10^6/uL (4.30-6.10)
[2022-05-17 20:22] LABS: INR 1.06
[2022-05-17 20:23] LABS: PARTIAL THROMBOPLASTIN TIME 40.6 SECONDS (24.8-34.2)
[2022-05-17 20:40] LABS: ALBUMIN 2.2 GM/DL (3.2-5.2); ALT/SGPT 12 U/L (12-78); AMYLASE 102 U/L (25-115); BILIRUBIN,DIRECT 0.2 MG/DL (0.0-0.2); BILIRUBIN,TOTAL 0.3 MG/DL (0.2-1.0); BLOOD UREA NITROGEN 8 MG/DL (7-18); C REACTIVE PROTEIN QUANTITATIV 5.25 MG/DL (0.00-0.30); CARBON DIOXIDE LEVEL 26 MEQ/L (21-32); CHLORIDE LEVEL 97 MEQ/L (98-107); CK-MB VALUE MASS < 1.0 NG/ML (<3.6); CPK CREATINE PHOSPHOKINASE 44 U/L (39-308); CREATININE FOR GFR 0.94 MG/DL (0.70-1.30); GLOMERULAR FILTRATION RATE > 60.0 (>56); GLUCOSE, FASTING 93 MG/DL (70-100); MB/CK RELATIVE INDEX 2.27 (< OR =4); POTASSIUM SERUM 3.7 MEQ/L (3.5-5.1); SODIUM LEVEL 130 MEQ/L (136-145); TOTAL PROTEIN 7.3 GM/DL (6.4-8.2)
[2022-05-17] MEDS ORDERED: LevoFLOXacin IV 750 MG in IV 1 EA IV ONE (22:10)
[2022-05-18] VITALS (20 sets, daily range): BP systolic 104–138; BP diastolic 67–90; O2SAT 92–100
[2022-05-18 00:04] LABS: BLOOD UREA NITROGEN 7 MG/DL (7-18); CALCIUM LEVEL 8.3 MG/DL (8.5-10.1); CARBON DIOXIDE LEVEL 23 MEQ/L (21-32); CHLORIDE LEVEL 102 MEQ/L (98-107); GLOMERULAR FILTRATION RATE > 60.0 (>56); GLUCOSE, FASTING 105 MG/DL (70-100); MAGNESIUM LEVEL 1.6 MG/DL (1.8-2.4); POTASSIUM SERUM 3.9 MEQ/L (3.5-5.1); SODIUM LEVEL 133 MEQ/L (136-145)
[2022-05-18] MEDS ORDERED: MAGNESIUM OXIDE 400MG TAB (MAG-OX) PO ONE ×2 (00:15→09:00)
[2022-05-18] MEDS ORDERED: LEVO1TAB40 PO (00:18)
[2022-05-18] MEDS ORDERED: COMBIVENT RESPIMAT 100-20MCG INHALER 4GM INH PRN (01:15)
[2022-05-18] MEDS ORDERED: LR 1,000 ML IV SCH (01:15)
[2022-05-18] MEDS ORDERED: ACETAMINOPHEN TAB 650MG DOSE (2X325MG) PO PRN (01:15)
[2022-05-18 01:58] LABS: FERRITIN 751 NG/ML (26-388); IRON (FE) 23 UG/DL (65-175); PERCENT SATURATION 18.7 % (19.7-50.0); TOTAL IRON BINDING CAPACITY 123 UG/DL (250-450)
[2022-05-18] MEDS ORDERED: REMDESIVIR 200 MG in NS 250 ML IV ONE (03:00)
[2022-05-18] MEDS: BENZONATATE 100MG CAPSULE PO PRN (03:23)
[2022-05-18] MEDS ORDERED: SODIUM CHLORIDE 0.9% INJ 10 ML SYR IV ONE (05:00)
[2022-05-18 05:32] LABS: BASO % 0.5 % (0.0-1.0); HEMATOCRIT 25.8 % (42.0-52.0); HEMOGLOBIN 7.6 g/dl (13.5-17.5); LYMPH % 25.9 % (24.0-44.0); MEAN CORPUSCULAR HEMOGLOBIN 25.5 pg (27.0-33.0); MEAN CORPUSCULAR HGB CONC 29.5 g/dl (32.0-36.5); MEAN CORPUSCULAR VOLUME 86.6 fl (80.0-96.0); MONO # 0.7 10^3/uL (0.0-0.8); NEUTROPHILS # 2.2 10^3/uL (1.5-8.5); NEUTROPHILS % 56.3 % (36.0-66.0); PLATELET COUNT, AUTOMATED 279 10^3/uL (150-450); RED BLOOD COUNT 2.98 10^6/uL (4.30-6.10); WHITE BLOOD COUNT 3.8 10^3/uL (4.0-10.0)
[2022-05-18 05:59] LABS: BLOOD UREA NITROGEN 6 MG/DL (7-18); CALCIUM LEVEL 8.4 MG/DL (8.5-10.1); CARBON DIOXIDE LEVEL 27 MEQ/L (21-32); CHLORIDE LEVEL 99 MEQ/L (98-107); CREATININE FOR GFR 0.91 MG/DL (0.70-1.30); GLOMERULAR FILTRATION RATE > 60.0 (>56); GLUCOSE, FASTING 96 MG/DL (70-100); MAGNESIUM LEVEL 1.5 MG/DL (1.8-2.4); POTASSIUM SERUM 3.3 MEQ/L (3.5-5.1); SODIUM LEVEL 133 MEQ/L (136-145)
[2022-05-18] MEDS ORDERED: MORP1SOL5 PO (06:18)
[2022-05-18] MEDS ORDERED: CALC-356 PO (06:24)
[2022-05-18] MEDS ORDERED: PANT40TA29 PO (06:24)
[2022-05-18] MEDS ORDERED: ONDA-84 PO (06:24)
[2022-05-18] MEDS ORDERED: ALB2.5NEB INH (06:24)
[2022-05-18] MEDS ORDERED: PROC10TA5 PO (06:24)
[2022-05-18] MEDS ORDERED: GABA-282 PO (06:24)
[2022-05-18] MEDS ORDERED: PRED5TA PO (06:24)
[2022-05-18] MEDS ORDERED: MAGN400T2 PO (06:24)
[2022-05-18] MEDS ORDERED: ALBU8.5H INH (06:24)
[2022-05-18] MEDS ORDERED: POTA-136 PO (06:26)
[2022-05-18] MEDS ORDERED: HOME MED LIST COMPLETE! XX SCH (06:30)
[2022-05-18] MEDS ORDERED: SENOKOT S TAB PO PRN (07:15)
[2022-05-18] MEDS ORDERED: ALBUTEROL SULFATE 2.5 MG/0.5 ML INH NEB SOLN INH PRN (07:15)
[2022-05-18] MEDS ORDERED: ONDANSETRON 4MG TAB PO PRN (07:15)
[2022-05-18 07:46] LABS: LDH LACTATE DEHYDROGENASE 483 U/L (87-241)
[2022-05-18] MEDS ORDERED: POTASSIUM CHLORIDE 10MEQ SR TABLET PO ONE (09:00)
[2022-05-18] MEDS ORDERED: guaiFENesin ER 600 MG TAB PO SCH (09:00)
[2022-05-18] MEDS: AZITHROMYCIN 250MG TABLET PO SCH (09:17)
[2022-05-18] MEDS: GABAPENTIN 300 MG CAP PO SCH ×3 (09:17→21:18)
[2022-05-18] MEDS: ENOXAPARIN 40MG/0.4ML SYRINGE (J1650 PER 10MG) SC SCH (09:18)
[2022-05-18] MEDS: PANTOPRAZOLE 40MG TAB (PROTONIX) PO SCH (09:18)
[2022-05-18 12:52] LABS: HEMATOCRIT 27.3 % (42.0-52.0)
[2022-05-18] MEDS: guaiFENesin 200 MG TAB PO SCH (17:22)
[2022-05-18] MEDS ORDERED: LevoFLOXacin IV 750 MG in IV 1 EA IV SCH (20:00)
[2022-05-18] MEDS: MORPHINE 10MG/0.5ML ORAL CONCENTRATE SOLUTION U/D PO PRN (21:19)
[2022-05-19] VITALS (9 sets, daily range): BP systolic 87–110; BP diastolic 57–80; O2SAT 96
[2022-05-19] MEDS: guaiFENesin 200 MG TAB PO SCH ×4 (00:11→17:14)
[2022-05-19] MEDS: REMDESIVIR 100 MG in NS 250 ML IV SCH (04:17)
[2022-05-19 05:49] LABS: BASO % 0.3 % (0.0-1.0); EOS % 0.3 % (0.0-3.0); HEMATOCRIT 27.4 % (42.0-52.0); HEMOGLOBIN 7.9 g/dl (13.5-17.5); LYMPH # 1.3 10^3/uL (1.5-5.0); LYMPH % 36.3 % (24.0-44.0); MEAN CORPUSCULAR HEMOGLOBIN 25.6 pg (27.0-33.0); MEAN CORPUSCULAR HGB CONC 28.8 g/dl (32.0-36.5); MEAN CORPUSCULAR VOLUME 88.7 fl (80.0-96.0); MONO # 0.6 10^3/uL (0.0-0.8); NEUTROPHILS # 1.6 10^3/uL (1.5-8.5); NEUTROPHILS % 45.8 % (36.0-66.0); PLATELET COUNT, AUTOMATED 261 10^3/uL (150-450); RED BLOOD COUNT 3.09 10^6/uL (4.30-6.10); WHITE BLOOD COUNT 3.5 10^3/uL (4.0-10.0)
[2022-05-19] MEDS: SODIUM CHLORIDE 0.9% INJ 10 ML SYR IV SCH (05:50)
[2022-05-19 06:38] LABS: BLOOD UREA NITROGEN 4 MG/DL (7-18); CALCIUM LEVEL 8.7 MG/DL (8.5-10.1); CARBON DIOXIDE LEVEL 28 MEQ/L (21-32); CHLORIDE LEVEL 101 MEQ/L (98-107); CREATININE FOR GFR 0.82 MG/DL (0.70-1.30); GLOMERULAR FILTRATION RATE > 60.0 (>56); GLUCOSE, FASTING 81 MG/DL (70-100); MAGNESIUM LEVEL 1.6 MG/DL (1.8-2.4); SODIUM LEVEL 135 MEQ/L (136-145)
[2022-05-19] MEDS ORDERED: MAGNESIUM OXIDE 400MG TAB (MAG-OX) PO ONE (07:35)
[2022-05-19] MEDS: PANTOPRAZOLE 40MG TAB (PROTONIX) PO SCH (08:42)
[2022-05-19] MEDS: GABAPENTIN 300 MG CAP PO SCH ×3 (08:42→20:54)
[2022-05-19] MEDS: AZITHROMYCIN 250MG TABLET PO SCH (08:42)
[2022-05-19] MEDS: ENOXAPARIN 40MG/0.4ML SYRINGE (J1650 PER 10MG) SC SCH (08:45)
[2022-05-19 13:17] LABS: VITAMIN B12 LEVEL 417 PG/ML (247-911)
[2022-05-19 14:48] LABS: PH BODY FLUID 7.383 UNITS (NOT ESTABLISHED); SOURCE, BODY FLUID pH PLEURAL
[2022-05-19 15:04] LABS: APPEARANCE, BODY FLUID HAZY (CLEAR); PLEURAL FL COLOR YELLOW (COLORLESS); SOURCE, BODY FLUID PLEURAL
[2022-05-19 15:23] LABS: SOURCE, BODY FLUID TOT PROTEIN PLEURAL; TOTAL PROTEIN, BODY FLUID 4.1 G/DL (NOT ESTABLISHED)
[2022-05-19] MEDS: ONDANSETRON 4MG 2ML VIAL IV PRN (15:24)
[2022-05-19 15:37] LABS: LDH, BODY FLUID 1149 U/L (NOT ESTABLISHED); SOURCE, BODY FLUID GLUCOSE PLEURAL; SOURCE, BODY FLUID LDH PLEURAL
[2022-05-19] MEDS ORDERED: ISOVUE-370 76% 100ML VIAL As Ordered ONE (16:30)
[2022-05-19 16:38] LABS: HEMATOCRIT 28.7 % (42.0-52.0); HEMOGLOBIN 8.1 g/dl (13.5-17.5); LYMPH % 21.6 % (24.0-44.0); MEAN CORPUSCULAR HEMOGLOBIN 24.9 pg (27.0-33.0); MEAN CORPUSCULAR HGB CONC 28.2 g/dl (32.0-36.5); MEAN CORPUSCULAR VOLUME 88.3 fl (80.0-96.0); MONO # 0.4 10^3/uL (0.0-0.8); MONO % 8.5 % (2.0-8.0); NEUTROPHILS # 3.3 10^3/uL (1.5-8.5); NEUTROPHILS % 69.7 % (36.0-66.0); PLATELET COUNT, AUTOMATED 284 10^3/uL (150-450); RED BLOOD COUNT 3.25 10^6/uL (4.30-6.10); WHITE BLOOD COUNT 4.7 10^3/uL (4.0-10.0)
[2022-05-19] MEDS: NS 1,000 ML IV SCH (17:11)
[2022-05-19] MEDS ORDERED: LevoFLOXacin 750 MG TABLET PO SCH (18:00)
[2022-05-20] VITALS (7 sets, daily range): BP systolic 90–108; BP diastolic 56–75; O2SAT 96–99
[2022-05-20] MEDS: NS 1,000 ML IV SCH (00:15)
[2022-05-20] MEDS: guaiFENesin 200 MG TAB PO SCH ×4 (00:15→16:37)
[2022-05-20] MEDS: SODIUM CHLORIDE 0.9% INJ 10 ML SYR IV SCH (05:37)
[2022-05-20] MEDS: REMDESIVIR 100 MG in NS 250 ML IV SCH (05:37)
[2022-05-20 06:46] LABS: BASO % 0.3 % (0.0-1.0); HEMATOCRIT 25.8 % (42.0-52.0); HEMOGLOBIN 7.6 g/dl (13.5-17.5); LYMPH # 1.3 10^3/uL (1.5-5.0); LYMPH % 31.7 % (24.0-44.0); MEAN CORPUSCULAR HEMOGLOBIN 25.5 pg (27.0-33.0); MEAN CORPUSCULAR HGB CONC 29.5 g/dl (32.0-36.5); MEAN CORPUSCULAR VOLUME 86.6 fl (80.0-96.0); MONO # 0.4 10^3/uL (0.0-0.8); MONO % 11.2 % (2.0-8.0); NEUTROPHILS # 2.2 10^3/uL (1.5-8.5); NEUTROPHILS % 56.5 % (36.0-66.0); PLATELET COUNT, AUTOMATED 230 10^3/uL (150-450); RED BLOOD COUNT 2.98 10^6/uL (4.30-6.10); WHITE BLOOD COUNT 3.9 10^3/uL (4.0-10.0)
[2022-05-20 06:58] LABS: INR 1.27; PROTHROMBIN TIME 16.2 SECONDS (12.5-14.5)
[2022-05-20 06:59] LABS: PARTIAL THROMBOPLASTIN TIME 41.9 SECONDS (24.8-34.2)
[2022-05-20 07:29] LABS: ALBUMIN 1.9 GM/DL (3.2-5.2); ALT/SGPT 12 U/L (12-78); BILIRUBIN,DIRECT 0.1 MG/DL (0.0-0.2); BILIRUBIN,TOTAL 0.3 MG/DL (0.2-1.0); BLOOD UREA NITROGEN 4 MG/DL (7-18); CALCIUM LEVEL 8.4 MG/DL (8.5-10.1); CARBON DIOXIDE LEVEL 27 MEQ/L (21-32); CHLORIDE LEVEL 101 MEQ/L (98-107); CREATININE FOR GFR 0.79 MG/DL (0.70-1.30); FERRITIN 879 NG/ML (26-388); GLOMERULAR FILTRATION RATE > 60.0 (>56); GLUCOSE, FASTING 86 MG/DL (70-100); LDH LACTATE DEHYDROGENASE 498 U/L (87-241); MAGNESIUM LEVEL 1.5 MG/DL (1.8-2.4); NT-PRO BNP 119 PG/ML (<125); POTASSIUM SERUM 3.3 MEQ/L (3.5-5.1); SODIUM LEVEL 137 MEQ/L (136-145); TOTAL PROTEIN 6.1 GM/DL (6.4-8.2)
[2022-05-20] MEDS: ONDANSETRON 4MG 2ML VIAL IV PRN ×2 (08:24→20:06)
[2022-05-20] MEDS: PANTOPRAZOLE 40MG TAB (PROTONIX) PO SCH (08:24)
[2022-05-20] MEDS: POTASSIUM CHLORIDE 10MEQ SR TABLET PO SCH (08:24)
[2022-05-20] MEDS: ENOXAPARIN 40MG/0.4ML SYRINGE (J1650 PER 10MG) SC SCH (08:24)
[2022-05-20] MEDS: GABAPENTIN 300 MG CAP PO SCH ×3 (08:24→20:00)
[2022-05-20] MEDS: MAG SULF 1GM/100ML (MAG RUN) 1 GM in IV 1 EA IV SCH ×2 (08:30→09:32)
[2022-05-21 00:07] VITALS: BP 106/66
[2022-05-21] MEDS: guaiFENesin 200 MG TAB PO SCH ×4 (00:07→16:48)
[2022-05-21 00:16] VITALS: O2SAT 100
[2022-05-21] MEDS: MORPHINE 10MG/0.5ML ORAL CONCENTRATE SOLUTION U/D PO PRN ×2 (01:56→16:52)
[2022-05-21] MEDS: REMDESIVIR 100 MG in NS 250 ML IV SCH (05:09)
[2022-05-21] MEDS: SODIUM CHLORIDE 0.9% INJ 10 ML SYR IV SCH (05:09)
[2022-05-21 05:18] VITALS: BP 116/78
[2022-05-21 06:52] LABS: BASO % 0.5 % (0.0-1.0); EOS % 0.8 % (0.0-3.0); HEMATOCRIT 27.5 % (42.0-52.0); HEMOGLOBIN 7.9 g/dl (13.5-17.5); LYMPH # 1.2 10^3/uL (1.5-5.0); LYMPH % 30.1 % (24.0-44.0); MEAN CORPUSCULAR HEMOGLOBIN 24.9 pg (27.0-33.0); MEAN CORPUSCULAR HGB CONC 28.7 g/dl (32.0-36.5); MEAN CORPUSCULAR VOLUME 86.8 fl (80.0-96.0); MONO # 0.4 10^3/uL (0.0-0.8); MONO % 9.5 % (2.0-8.0); NEUTROPHILS # 2.4 10^3/uL (1.5-8.5); NEUTROPHILS % 58.8 % (36.0-66.0); PLATELET COUNT, AUTOMATED 269 10^3/uL (150-450); RED BLOOD COUNT 3.17 10^6/uL (4.30-6.10)
[2022-05-21 07:33] LABS: BLOOD UREA NITROGEN 3 MG/DL (7-18); CALCIUM LEVEL 8.4 MG/DL (8.5-10.1); CARBON DIOXIDE LEVEL 26 MEQ/L (21-32); CHLORIDE LEVEL 101 MEQ/L (98-107); CREATININE FOR GFR 0.81 MG/DL (0.70-1.30); GLOMERULAR FILTRATION RATE > 60.0 (>56); GLUCOSE, FASTING 111 MG/DL (70-100); MAGNESIUM LEVEL 1.9 MG/DL (1.8-2.4); POTASSIUM SERUM 3.6 MEQ/L (3.5-5.1); SODIUM LEVEL 136 MEQ/L (136-145)
[2022-05-21] MEDS: POTASSIUM CHLORIDE 10MEQ SR TABLET PO SCH (09:11)
[2022-05-21] MEDS: ENOXAPARIN 40MG/0.4ML SYRINGE (J1650 PER 10MG) SC SCH (09:11)
[2022-05-21] MEDS: GABAPENTIN 300 MG CAP PO SCH ×3 (09:12→20:17)
[2022-05-21] MEDS: PANTOPRAZOLE 40MG TAB (PROTONIX) PO SCH (09:12)
[2022-05-21] MEDS: ONDANSETRON 4MG 2ML VIAL IV PRN (09:37)
[2022-05-21 13:17] VITALS: BP 104/71
[2022-05-21 20:00] VITALS: BP 116/76
[2022-05-21 22:35] VITALS: O2SAT 98
[2022-05-22 05:00] VITALS: BP 101/59
[2022-05-22] MEDS: REMDESIVIR 100 MG in NS 250 ML IV SCH (05:06)
[2022-05-22] MEDS: guaiFENesin 200 MG TAB PO SCH ×5 (05:06→23:21)
[2022-05-22] MEDS: SODIUM CHLORIDE 0.9% INJ 10 ML SYR IV SCH (05:06)
[2022-05-22] MEDS: GABAPENTIN 300 MG CAP PO SCH ×3 (08:36→23:21)
[2022-05-22] MEDS: POTASSIUM CHLORIDE 10MEQ SR TABLET PO SCH (08:36)
[2022-05-22] MEDS: ENOXAPARIN 40MG/0.4ML SYRINGE (J1650 PER 10MG) SC SCH (08:37)
[2022-05-22] MEDS: PANTOPRAZOLE 40MG TAB (PROTONIX) PO SCH (09:00)
[2022-05-22] MEDS: AUGMENTIN 875 MG TAB PO SCH ×2 (12:14→23:21)
[2022-05-22] MEDS: ONDANSETRON 4MG ORAL DISINTEGRATING TAB SL PRN ×2 (12:20→17:47)
[2022-05-22] MEDS: MORPHINE 10MG/0.5ML ORAL CONCENTRATE SOLUTION U/D PO PRN ×2 (12:21→17:59)
[2022-05-22 15:13] LABS: HEMATOCRIT 29.4 % (42.0-52.0); HEMOGLOBIN 8.6 g/dl (13.5-17.5); MEAN CORPUSCULAR HEMOGLOBIN 25.4 pg (27.0-33.0); MEAN CORPUSCULAR HGB CONC 29.3 g/dl (32.0-36.5); MEAN CORPUSCULAR VOLUME 86.7 fl (80.0-96.0); PLATELET COUNT, AUTOMATED 278 10^3/uL (150-450); RED BLOOD COUNT 3.39 10^6/uL (4.30-6.10)
[2022-05-22 15:35] VITALS: BP 106/78
[2022-05-22 16:01] LABS: BLOOD UREA NITROGEN 4 MG/DL (7-18); CARBON DIOXIDE LEVEL 28 MEQ/L (21-32); CHLORIDE LEVEL 100 MEQ/L (98-107); CREATININE FOR GFR 0.76 MG/DL (0.70-1.30); GLOMERULAR FILTRATION RATE > 60.0 (>56); GLUCOSE, FASTING 90 MG/DL (70-100); POTASSIUM SERUM 4.5 MEQ/L (3.5-5.1); SODIUM LEVEL 133 MEQ/L (136-145)
[2022-05-22] MEDS: BENZONATATE 100MG CAPSULE PO PRN (17:47)
[2022-05-22] MEDS: CEPACOL LOZENGE PO PRN (17:57)
[2022-05-23] MEDS: guaiFENesin 200 MG TAB PO SCH ×3 (06:00→17:34)
[2022-05-23 06:04] VITALS: BP 95/55
[2022-05-23] MEDS: GABAPENTIN 300 MG CAP PO SCH ×3 (09:05→20:47)
[2022-05-23] MEDS: POTASSIUM CHLORIDE 10MEQ SR TABLET PO SCH (09:05)
[2022-05-23] MEDS: ENOXAPARIN 40MG/0.4ML SYRINGE (J1650 PER 10MG) SC SCH (09:05)
[2022-05-23] MEDS: CEPACOL LOZENGE PO PRN ×2 (09:05→17:42)
[2022-05-23] MEDS: PANTOPRAZOLE 40MG TAB (PROTONIX) PO SCH (09:05)
[2022-05-23] MEDS: AUGMENTIN 875 MG TAB PO SCH ×2 (09:05→20:46)
[2022-05-23] MEDS: MORPHINE 10MG/0.5ML ORAL CONCENTRATE SOLUTION U/D PO PRN (09:07)
[2022-05-23] MEDS: ONDANSETRON 4MG ORAL DISINTEGRATING TAB SL PRN (17:29)
[2022-05-24] MEDS: guaiFENesin 200 MG TAB PO SCH ×4 (00:14→16:50)
[2022-05-24] MEDS: ONDANSETRON 4MG ORAL DISINTEGRATING TAB SL PRN ×3 (03:34→20:18)
[2022-05-24 06:00] VITALS: BP 93/57
[2022-05-24] MEDS: ENOXAPARIN 40MG/0.4ML SYRINGE (J1650 PER 10MG) SC SCH (08:52)
[2022-05-24] MEDS: AUGMENTIN 875 MG TAB PO SCH ×2 (08:52→20:18)
[2022-05-24] MEDS: LACTOBACILLUS ACIDOPHILUS CAP (BACID) PO SCH ×2 (08:52→16:50)
[2022-05-24] MEDS: GABAPENTIN 300 MG CAP PO SCH ×3 (08:52→20:18)
[2022-05-24] MEDS: PANTOPRAZOLE 40MG TAB (PROTONIX) PO SCH (08:52)
[2022-05-24] MEDS: POTASSIUM CHLORIDE 10MEQ SR TABLET PO SCH (08:52)
[2022-05-24 09:56] VITALS: O2SAT 96
[2022-05-24] MEDS: BENZONATATE 100MG CAPSULE PO PRN (11:18)
[2022-05-24] MEDS: MORPHINE 10MG/0.5ML ORAL CONCENTRATE SOLUTION U/D PO PRN (16:55)
[2022-05-24] MEDS: CEPACOL LOZENGE PO PRN (20:27)
[2022-05-25] MEDS: guaiFENesin 200 MG TAB PO SCH ×4 (00:24→17:06)
[2022-05-25] MEDS: CEPACOL LOZENGE PO PRN ×4 (02:51→23:19)
[2022-05-25] MEDS: ONDANSETRON 4MG ORAL DISINTEGRATING TAB SL PRN ×3 (03:07→17:06)
[2022-05-25 06:00] VITALS: BP 111/76
[2022-05-25] MEDS: PANTOPRAZOLE 40MG TAB (PROTONIX) PO SCH (09:52)
[2022-05-25] MEDS: GABAPENTIN 300 MG CAP PO SCH ×3 (09:52→21:00)
[2022-05-25] MEDS: AUGMENTIN 875 MG TAB PO SCH ×2 (09:52→23:19)
[2022-05-25] MEDS: LACTOBACILLUS ACIDOPHILUS CAP (BACID) PO SCH ×2 (09:52→17:06)
[2022-05-25] MEDS: BENZONATATE 100MG CAPSULE PO PRN ×2 (09:52→23:19)
[2022-05-25] MEDS: POTASSIUM CHLORIDE 10MEQ SR TABLET PO SCH (09:52)
[2022-05-25] MEDS: ENOXAPARIN 40MG/0.4ML SYRINGE (J1650 PER 10MG) SC SCH (09:53)
[2022-05-25] MEDS: PROCHLORPERAZINE 5MG TAB PO PRN ×2 (11:34→23:19)
[2022-05-26 05:40] VITALS: BP 91/64
[2022-05-26] MEDS: guaiFENesin 200 MG TAB PO SCH ×5 (06:09→23:14)
[2022-05-26] MEDS: ONDANSETRON 4MG ORAL DISINTEGRATING TAB SL PRN ×3 (06:09→23:14)
[2022-05-26] MEDS: CEPACOL LOZENGE PO PRN ×3 (06:09→23:14)
[2022-05-26] MEDS: PANTOPRAZOLE 40MG TAB (PROTONIX) PO SCH (08:21)
[2022-05-26] MEDS: GABAPENTIN 300 MG CAP PO SCH ×3 (08:21→23:14)
[2022-05-26] MEDS: ENOXAPARIN 40MG/0.4ML SYRINGE (J1650 PER 10MG) SC SCH (08:21)
[2022-05-26] MEDS: LACTOBACILLUS ACIDOPHILUS CAP (BACID) PO SCH ×2 (08:21→18:26)
[2022-05-26 11:51] LABS: HEMATOCRIT 32.8 % (42.0-52.0); HEMOGLOBIN 9.3 g/dl (13.5-17.5); MEAN CORPUSCULAR HEMOGLOBIN 24.5 pg (27.0-33.0); MEAN CORPUSCULAR HGB CONC 28.4 g/dl (32.0-36.5); MEAN CORPUSCULAR VOLUME 86.5 fl (80.0-96.0); PLATELET COUNT, AUTOMATED 358 10^3/uL (150-450); RED BLOOD COUNT 3.79 10^6/uL (4.30-6.10); WHITE BLOOD COUNT 5.8 10^3/uL (4.0-10.0)
[2022-05-26 12:23] LABS: BLOOD UREA NITROGEN 3 MG/DL (7-18); CALCIUM LEVEL 9.6 MG/DL (8.5-10.1); CARBON DIOXIDE LEVEL 27 MEQ/L (21-32); CHLORIDE LEVEL 99 MEQ/L (98-107); CREATININE FOR GFR 1.15 MG/DL (0.70-1.30); GLOMERULAR FILTRATION RATE > 60.0 (>56); GLUCOSE, FASTING 97 MG/DL (70-100); POTASSIUM SERUM 3.7 MEQ/L (3.5-5.1); SODIUM LEVEL 134 MEQ/L (136-145)
[2022-05-26 15:26] LABS: HEMATOCRIT 33.8 % (42.0-52.0); HEMOGLOBIN 9.8 g/dl (13.5-17.5); MEAN CORPUSCULAR HEMOGLOBIN 24.7 pg (27.0-33.0); MEAN CORPUSCULAR VOLUME 85.1 fl (80.0-96.0); PLATELET COUNT, AUTOMATED 423 10^3/uL (150-450); RED BLOOD COUNT 3.97 10^6/uL (4.30-6.10); WHITE BLOOD COUNT 6.4 10^3/uL (4.0-10.0)
[2022-05-26 16:16] LABS: BLOOD UREA NITROGEN 4 MG/DL (7-18); CALCIUM LEVEL 9.2 MG/DL (8.5-10.1); CARBON DIOXIDE LEVEL 27 MEQ/L (21-32); CHLORIDE LEVEL 100 MEQ/L (98-107); CREATININE FOR GFR 1.16 MG/DL (0.70-1.30); GLOMERULAR FILTRATION RATE > 60.0 (>56); GLUCOSE, FASTING 107 MG/DL (70-100); POTASSIUM SERUM 3.9 MEQ/L (3.5-5.1); SODIUM LEVEL 136 MEQ/L (136-145)
[2022-05-26] MEDS: BENZONATATE 100MG CAPSULE PO PRN (16:26)
[2022-05-26 20:39] VITALS: BP 92/64
[2022-05-27 06:00] VITALS: BP 86/60
[2022-05-27] MEDS ORDERED: NS 1,000 ML IV ONE (06:00)
[2022-05-27] MEDS: guaiFENesin 200 MG TAB PO SCH ×3 (06:35→17:53)
[2022-05-27] MEDS: ONDANSETRON 4MG ORAL DISINTEGRATING TAB SL PRN ×2 (06:35→12:22)
[2022-05-27] MEDS: CEPACOL LOZENGE PO PRN ×2 (06:35→21:29)
[2022-05-27] MEDS: BENZONATATE 100MG CAPSULE PO PRN (06:35)
[2022-05-27 06:45] LABS: BASO % 0.5 % (0.0-1.0); EOS # 0.1 10^3/uL (0.0-0.5); EOS % 1.8 % (0.0-3.0); HEMATOCRIT 33.6 % (42.0-52.0); HEMOGLOBIN 9.6 g/dl (13.5-17.5); LYMPH # 1.4 10^3/uL (1.5-5.0); LYMPH % 25.3 % (24.0-44.0); MEAN CORPUSCULAR HEMOGLOBIN 24.3 pg (27.0-33.0); MEAN CORPUSCULAR HGB CONC 28.6 g/dl (32.0-36.5); MEAN CORPUSCULAR VOLUME 85.1 fl (80.0-96.0); MONO # 0.7 10^3/uL (0.0-0.8); MONO % 12.5 % (2.0-8.0); NEUTROPHILS # 3.4 10^3/uL (1.5-8.5); NEUTROPHILS % 59.4 % (36.0-66.0); PLATELET COUNT, AUTOMATED 370 10^3/uL (150-450); RED BLOOD COUNT 3.95 10^6/uL (4.30-6.10); WHITE BLOOD COUNT 5.7 10^3/uL (4.0-10.0)
[2022-05-27 07:31] LABS: ALT/SGPT 17 U/L (12-78); BLOOD UREA NITROGEN 3 MG/DL (7-18); CALCIUM LEVEL 9.2 MG/DL (8.5-10.1); CARBON DIOXIDE LEVEL 26 MEQ/L (21-32); CHLORIDE LEVEL 96 MEQ/L (98-107); GLOMERULAR FILTRATION RATE > 60.0 (>56); GLUCOSE, FASTING 117 MG/DL (70-100); POTASSIUM SERUM 3.6 MEQ/L (3.5-5.1); SODIUM LEVEL 134 MEQ/L (136-145)
[2022-05-27 07:32] LABS: ALBUMIN 2.5 GM/DL (3.2-5.2); BILIRUBIN,TOTAL 0.5 MG/DL (0.2-1.0); MAGNESIUM LEVEL 1.5 MG/DL (1.8-2.4); TOTAL PROTEIN 7.6 GM/DL (6.4-8.2)
[2022-05-27] MEDS: GABAPENTIN 300 MG CAP PO SCH ×3 (08:23→21:27)
[2022-05-27] MEDS: ENOXAPARIN 40MG/0.4ML SYRINGE (J1650 PER 10MG) SC SCH (08:23)
[2022-05-27] MEDS: PANTOPRAZOLE 40MG TAB (PROTONIX) PO SCH (08:23)
[2022-05-27] MEDS: LACTOBACILLUS ACIDOPHILUS CAP (BACID) PO SCH ×2 (08:23→17:53)
[2022-05-27] MEDS ORDERED: POTASSIUM CHLORIDE 10MEQ SR TABLET PO ONE (08:25)
[2022-05-27] MEDS: MAG SULF 1GM/100ML (MAG RUN) 1 GM in IV 1 EA IV SCH ×4 (08:58→12:21)
[2022-05-27] MEDS: NS 1,000 ML IV SCH (09:57)
[2022-05-27 14:53] VITALS: BP 117/68
[2022-05-27] MEDS: MORPHINE 10MG/0.5ML ORAL CONCENTRATE SOLUTION U/D PO PRN (16:34)
[2022-05-27] MEDS: ONDANSETRON 4MG 2ML VIAL IV SCH (21:26)
[2022-05-28] MEDS: guaiFENesin 200 MG TAB PO SCH ×3 (00:06→13:12)
[2022-05-28] MEDS: NS 1,000 ML IV SCH (00:07)
[2022-05-28] MEDS: MORPHINE 10MG/0.5ML ORAL CONCENTRATE SOLUTION U/D PO PRN ×2 (03:16→10:18)
[2022-05-28 05:03] VITALS: BP 103/63
[2022-05-28] MEDS: ONDANSETRON 4MG 2ML VIAL IV SCH ×2 (05:47→14:00)
[2022-05-28 08:47] LABS: BASO % 0.5 % (0.0-1.0); EOS # 0.1 10^3/uL (0.0-0.5); EOS % 1.9 % (0.0-3.0); HEMATOCRIT 29.4 % (42.0-52.0); HEMOGLOBIN 8.2 g/dl (13.5-17.5); LYMPH # 1.1 10^3/uL (1.5-5.0); LYMPH % 24.3 % (24.0-44.0); MEAN CORPUSCULAR HEMOGLOBIN 24.5 pg (27.0-33.0); MEAN CORPUSCULAR HGB CONC 27.9 g/dl (32.0-36.5); MEAN CORPUSCULAR VOLUME 87.8 fl (80.0-96.0); MONO # 0.6 10^3/uL (0.0-0.8); MONO % 13.4 % (2.0-8.0); NEUTROPHILS # 2.6 10^3/uL (1.5-8.5); NEUTROPHILS % 59.4 % (36.0-66.0); PLATELET COUNT, AUTOMATED 316 10^3/uL (150-450); RED BLOOD COUNT 3.35 10^6/uL (4.30-6.10); WHITE BLOOD COUNT 4.3 10^3/uL (4.0-10.0)
[2022-05-28] MEDS: ENOXAPARIN 40MG/0.4ML SYRINGE (J1650 PER 10MG) SC SCH (09:00)
[2022-05-28 09:17] LABS: BLOOD UREA NITROGEN 3 MG/DL (7-18); CALCIUM LEVEL 8.3 MG/DL (8.5-10.1); CARBON DIOXIDE LEVEL 24 MEQ/L (21-32); CHLORIDE LEVEL 103 MEQ/L (98-107); CREATININE FOR GFR 0.89 MG/DL (0.70-1.30); GLOMERULAR FILTRATION RATE > 60.0 (>56); GLUCOSE, FASTING 107 MG/DL (70-100); POTASSIUM SERUM 3.7 MEQ/L (3.5-5.1); SODIUM LEVEL 137 MEQ/L (136-145)
[2022-05-28] MEDS: PANTOPRAZOLE 40MG TAB (PROTONIX) PO SCH (09:40)
[2022-05-28] MEDS: LACTOBACILLUS ACIDOPHILUS CAP (BACID) PO SCH (09:40)
[2022-05-28] MEDS: GABAPENTIN 300 MG CAP PO SCH (09:40)
[2022-05-28] MEDS ORDERED: ALBU8.5H INH (12:01)
== END 2022-05-28 16:00 | disposition home or self-care (01) | DRG 137 ==
LOC: M ED 19:25 → M ED INP 05-18 01:14 → M PCU 05-18 03:35 → M 4MAIN 05-18 20:18 → M MSPAV 05-22 17:41
PROVIDERS: ADMIT Family Medicine; ATTEND Internal Medicine
PROC: XW033E5 Introduction of Remdesivir Anti-infective into Peripheral Vein, Percutaneous Approach, New Technology Group 5 (ICD-10-PCS; principal; 2022-05-18)
PROC: 0W993ZX Drainage of Right Pleural Cavity, Percutaneous Approach, Diagnostic (ICD-10-PCS; 2022-05-19)
DX: U07.1 COVID-19 (principal); I95.9 Hypotension, unspecified; E87.20 Acidosis, unspecified; J90 Pleural effusion, not elsewhere classified; D64.81 Anemia due to antineoplastic chemotherapy; E83.42 Hypomagnesemia; C34.11 Malignant neoplasm of upper lobe, right bronchus or lung; J98.11 Atelectasis; D63.0 Anemia in neoplastic disease; G47.33 Obstructive sleep apnea (adult) (pediatric); R53.82 Chronic fatigue, unspecified; R11.2 Nausea with vomiting, unspecified; E87.6 Hypokalemia; E86.0 Dehydration; R19.7 Diarrhea, unspecified; R59.0 Localized enlarged lymph nodes; Z92.21 Personal history of antineoplastic chemotherapy; Z87.891 Personal history of nicotine dependence; Z79.899 Other long term (current) drug therapy; Z95.828 Presence of other vascular implants and grafts; Z92.3 Personal history of irradiation